=== PATIENT | female | born 1950 | race Two or more races ===

== ENCOUNTER 2021-10-05 07:37 | Outpatient (CLI) | payer OTHER | END 2021-10-05 07:38 | disposition home or self-care (01) | LOC: LAB 07:37 | PROVIDERS: ATTEND Dermatology | DX: Z20.828 Contact with and (suspected) exposure to other viral communicable diseases (principal) ==

== ENCOUNTER 2021-10-05 08:42 | Outpatient (CLI) | payer OTHER | END 2021-10-05 08:44 | disposition home or self-care (01) | LOC: NUCLEAR 08:42 | PROVIDERS: ATTEND Internal Medicine Cardiovascular Disease | DX: I20.1 Angina pectoris with documented spasm (principal) | CPT/HCPCS: 78452; 93017; A9500 ==